=== PATIENT | male | born 1960 | race Caucasian/White ===

== ENCOUNTER 2017-01-10 08:56 | Day surgery (SDC) | payer OTHER ==
[~2017-01-10] VITALS: Ht 182.9 cm; Wt 77.8 kg
[~2017-01-10 08:56] MED LIST: HYDR25CA PO; IBUP200C PO; OXYC5CAP4 PO; SERT20OR PO; Vancomycin Dose per Pharmacist XX SCH; Vancomycin Inj 1,250 MG in 0.9% Sodium Chloride 250 ML IV ONE
[2017-01-10] MEDS ORDERED: Lidocaine PF 1% 30 mL Inj ONE (08:57)
[2017-01-10] MEDS ORDERED: Propofol 10,000 mCg/mL 20 mL Inj ONE (08:57)
[2017-01-10] MEDS ORDERED: fentaNYL-PF 50 mCg/mL 2 mL Inj ONE (08:57)
[2017-01-10] MEDS ORDERED: Ketamine 10 mg/mL 20 mL Inj ONE (08:57)
[2017-01-10] MEDS: Lactated Ringer's 1,000 ML IV SCH ×2 (09:01→11:05)
[2017-01-10 09:25] VITALS: BP 131/71; PULSE 72; RESP 18; O2SAT 99
--- NOTE | 2017-01-10 11:00 | PCM.HPANE ---
Patient Data Date of Service: Jan 10, 2017 Surgeon Admitting Provider: Attending Provider:Yaa Coy DPM Primary Care Physician:Nikko Dash DO Other Provider:Haroldo Narayan Anesthesia Reason for Visit Left 2ND Toe Deformity, Left Foot Ganglion Cyst Ht/WT & BMI Height (Feet): 6 Height (Inches): 0.00 Weight (Kilograms): 77.8 Body Mass Index 23.00 Allergies Coded Allergies: Penicillins (Verified Allergy, Severe, unknown, 01/06/17) codeine (Verified Allergy, Unknown, UNKNOWN, 01/06/17) Past Anesthesia History Anesthesia History: Denies:: Anesthesia Reactions, Malignant Hyperthermia Diabetes History Hx Diabetes?: No MRSA MRSA: No Medications Home Meds Incl Beta Ayse: No Reported Medications oxyCODONE 5 Mg Capsule5-10 Mg PO Q4H PRN For Pain Ref 0 POSTOP 01/06/17 Sertraline HCl (Zoloft)20 Mg/1 Ml Oral.conc50 Mg PO DAILY #1 BOTTLE Ref 0 01/06/17 Hydroxyzine Pamoate (Vistaril)25 Mg Dtoexoa31-49 Mg PO QID PRN For Spasm Ref 0 01/06/17 Ibuprofen 200 Mg [id number] Mg PO QID PRN For Pain Ref 0 01/06/17 Discontinued Reported Medications Venlafaxine-Expunged Drug, Do Not Renew! (Effexor-Expunged Drug, Do Not Renew!) 75 Mg [id number] Mg PO AM 03/08/11 History History of ENT Problems?: Yes HEENT History: Positive for:: TMJ (HX OF) Denies:: Cataracts Hearing Problem Hx of Heart Problems?: No Cardiovascular History: Denies:: Heart Murmur Hypertension Hx of Respiratory Problem?: Yes Respiratory History: Denies:: Use of C-PAP Machine (SNORES) Hx Neurologic Problems?: No Hx of GI Problems?: Yes Other GI Pertinent History: S/P RT INGUINAL HERNIA RPR Hx of Problems?: No Male Hx: Denies:: Prostate Problems Scrotal Mass Testicular Surgery Skin History: Positive for:: History Skin Disorders? (S/P SKIN (EXC?) SURGERY LOWER BACK) Denies:: Pressure Ulcers Hx Musculoskeletal Problems?: Yes Musculoskeletal History: Positive for:: Musculoskeletal Trauma (S/P LEG RPR, RT KNEE SCOPE HX LT ELBOW & ROTATOR CUFF STRAIN,FX LT TOE) Hx of Psycho/Social Problems?: Yes Psycho Social History: Positive for:: Anxiety Hx Surgeries?: Yes (leg surgery, low back skin,RT INGUINAL HERNIA RPR,RT KNEE SCOPE) Hx Any Other Health Problems?: Yes Other History: Denies:: Cancer Endocrine Disease Hospitalization Thyroid Disease History Blood Transfusions: Denies:: Blood Transfusions Hx Diabetes: No Hx Alcohol Use: NoHx Substance Use: NoHave You Smoked inLast 12 mo: Yes Approx How Many Cigarettes/day: 5 C/DAY Stop/Bang S-Snoring: Do You Snore Loudly: Yes T-Tired: feel tired, fatigued: No O-Obsered: Observed not breath: No P-Blood Pressure: treated: No B- Body Mass Index > 35 kg/m2: No A- Age over 50: Yes N- Neck Large Circumference: No G- Gender Male: Yes NOELLE Total Score: 3 Risk Assessment Category Category 1A: Patient has history of documented sleep apnea, and HAS NOT received any narcotic, sedative or anesthesia administration during this stay. Category 1B: Patient has history of documented sleep apnea, and HAS received any narcotic , sedative or anesthesia administration during this stay Category 2: Patient has SUSPECTED Obstructive Sleep Apnea, and HAS received any narcotic , sedative or anesthesia administration during this stay. Category 3: Patient has SUSPECTED Obstructive Sleep Apnea and HAS NOT received narcotic, sedative or anesthesia administration during this stay. Category 4: Outpatient in Procedural Areas with known sleep apnea or who screen positive for High Risk via the STOP/BANG questionnaire. Exam Exam Vital Signs Vital Signs Date Time Temp Pulse Resp B/P Pulse Ox O2 Delivery O2 Flow Rate FiO2 01/10/17 09:25 36.5 72 18 131/71 99 Room Air HEENT/AIRWAY: MP 1 Lungs: Clear to Auscultation Heart: Regular Rate/Rhythm Meds/Labs/Diagnostics Admission Meds Current Medications Vancomycin HCl 1250 mg/Sodium Chloride 250 ml @ 166.667 mls/hr ONCE ONCE IV Last administered on 01/10/17 09:30; Start 01/10/17 at 06:00; Stop 01/10/17 at 07:29; Status DC Lactated Ringer's (Lr) 1,000 ml @ 120 mls/hr Q8H20M IV Last administered on 09:01; Start 01/10/17 at 05:00; Stop 01/10/17 at 13:19 Plan Impression Patient chart reviewed, patient interviewed and anesthestic plan with risks, benefits, and alternatives discussed, and informed consent obtained. NPO Status: black coffee at 0600 ASA Physical Status: ASA1 Normal Healthy Anesthetic Plan: MAC Bene/Risks/Altern/Consents: Yes HP Complete Prior to Induction: Yes Bobo Evans MD Jan 10, 2017 09:39
[2017-01-10] MEDS ORDERED: Lidocaine 2%-Epi 1:100,000 20 mL Inj NERVEBLOCK ONE (11:22)
[2017-01-10] MEDS ORDERED: Bupivacaine-MPF 0.5% 30 mL Inj INJ ONE (11:22)
[2017-01-10 12:03] VITALS: BP 125/82; PULSE 68; RESP 16; O2SAT 98
[2017-01-10] MEDS ORDERED: Lactated Ringer's 1,000 ML IV SCH (12:07)
[2017-01-10] MEDS ORDERED: Lactated Ringer's 500 ML IV PRN (12:07)
--- NOTE | 2017-01-10 12:08 | PCM.ANEP1 ---
Post Anesthesia Phase 1 PACU Phase 1 Assessment Date of Service: Jan 10, 2017 Vital Signs Vital Signs Date Time Temp Pulse Resp B/P Pulse Ox O2 Delivery O2 Flow Rate FiO2 01/10/17 09:25 36.5 72 18 131/71 99 Room Air Anesthetic Administered: MAC Level of Alertness: Awake, talking CANCINO's with Equal Strength: Yes Pain: No Nausea or Vomiting: No Oxygen Delivery: Room Air Bobo Evans MD Jan 10, 2017 12:08
--- NOTE | 2017-01-10 12:09 | PCM.ANEP2 ---
Post Anesthesia Evaluation ASA/CMS Post Anesthesia Date of Service: Jan 10, 2017 VS in Patient's Normal Range?: Yes Resp Stable; Airway Patent?: Yes CV Function & Hydration Stable: Yes Mental Status Recovered?: Yes Pain control Satisfactory?: Yes N/V Control Satisfactory?: Yes Bobo Evans MD Jan 10, 2017 12:08
[2017-01-10] MEDS ORDERED: Labetalol 5 mg/mL 4 mL Inj IV PRN (12:10)
[2017-01-10] MEDS ORDERED: EPHEDrine Sulfate 50 mg/mL Inj IVPUSH PRN (12:10)
[2017-01-10] MEDS ORDERED: Atropine 0.4 mg/mL Inj IVPUSH PRN (12:10)
[2017-01-10] MEDS ORDERED: fentaNYL-PF 50 mCg/mL 2 mL Inj IVPUSH PRN (12:10)
[2017-01-10] MEDS ORDERED: hydrALAZINE 20 mg/mL Inj IVPUSH PRN (12:10)
[2017-01-10] MEDS ORDERED: HYDROmorphone 1 mg/mL Inj IVPUSH PRN (12:10)
[2017-01-10] MEDS ORDERED: Phenylephrine 10,000 mCg/mL Inj IVPUSH PRN (12:10)
[2017-01-10] MEDS ORDERED: Ondansetron 2 mg/mL 2 mL Inj IVPUSH PRN (12:10)
[2017-01-10] MEDS ORDERED: MetoCLOpramide 5 mg/mL 2 mL Inj IVPUSH PRN (12:10)
[2017-01-10] MEDS ORDERED: oxyCODONE-Acetamin 5-325 mg Tablet PO PRN (12:25)
--- NOTE | 2017-01-10 12:30 | PCM.PODPO ---
Podiatry Operative Report Date of Service: Jan 10, 2017 Date of Service Jan 10, 2017 Pre Operative Diagnosis Left second hammertoe with plantar ganglion cyst. Post Operative Diagnosis Left second hammertoe with plantar synovitis. Procedure Left second hammertoe repair Surgeon Surgeon: Yaa Coy DPM Assistants: None Indication for Procedure Pain and worsening deformity in the left second hammertoe with synovitis and cystic formation about the plantar surface of the second toe sulcus on previous MRI. No neuroma noted. Findings Good correction of the second hammertoe deformity with adhesions noted on the plantar surface, following the flexor digitorum longus Details of Procedure The patient was identified in the preoperative holding area, brought to the operating room and placed on the operating table in supine position. The timeout protocol was completed in the patient's site of surgery confirmed. IV sedation was initiated and the left second ray anesthetized with lidocaine plain. The left foot was prepped and draped in usual aseptic manner. An incision was made on the dorsolateral aspect of the second metatarsophalangeal joint extending distally over the proximal interphalangeal joint. The lateral portion of the extensor tendon apparatus was incised at the proximal interphalangeal joint and medial portion was left intact and undermined to expose the underlying joint joint surfaces were resected. 30% of joint surface was atrophied and cartilage was eroded. Adhesions of the flexor digitorum longus were noted, interfering with reduction of the toe. These adhesions were released sharply. The intermetatarsal space was explored and no cystic mass was found. Hypertrophied synovium was easily excised. Irrigation was performed. A 0.045 inch K wire was anterior grade drilled through the center of the middle phalanx exiting through the distal portion of the toe and then retrograde drilled into the proximal phalanx to achieve interphalangeal joint fusion. The external portion of the K wire at the distal aspect of the toe was bent and capped. This external fixation device will be removed in approximately 2-3 weeks, expecting to manuel tape the second and third toes for up to 8 weeks. The tendon was reapproximated with 4-0 Vicryl suture irrigation performed again and the skin closed with 4-0 Prolene with the toe in excellent reduced position. Dressing consisted of Kuo silk, 4 x 4 moistened gauze, Kerlix, and lightly compressive Coban. The patient's foot was placed in a postoperative shoe. He was weaned off of anesthesia and taken to the surgery with vital signs stable and neurovascular status of the left foot appearing intact. No tourniquet was necessary. Incisional epinephrine containing lidocaine was used on the dorsal surface of the toe only. Capillary refill was maintained throughout the procedure. Grafts, Implants: Implants-See Implant Record Complications There were no periprocedural complications identified. Condition Stable Anesthetic Administered: MAC Drains: None Catheters: None Output, Estimated Blood Loss: 5 (ml) Blood Admin during surgery: No Surgical Cast or Splint: Post-op Boot Surgical Specimen Removed: No Specimen sent to Pathology: No Post Operative Plan Weight-bear as tolerated, as long as postoperative shoe is worn. Follow-up in one week as previously scheduled. Oral pain medication has been prescribed. We expect the K wire to be removed in 2-3 weeks. Manuel taping of toes 2 and 3 to continue up to 8 weeks. Yaa Coy DPM Jan 10, 2017 12:30
== END 2017-01-10 23:59 | disposition home or self-care (01) ==
LOC: SAS 08:56
PROVIDERS: ATTEND Podiatrist
DX: M20.42 Other hammer toe(s) (acquired), left foot (principal); M67.472 Ganglion, left ankle and foot; F41.9 Anxiety disorder, unspecified; Z79.899 Other long term (current) drug therapy
CPT/HCPCS: 28285; J3010; J3370; J7050; J7120